=== PATIENT | male | born 1985 | race African-American/Black ===

== ENCOUNTER 2017-12-18 12:49 | Emergency (ER) | payer OTHER ==
[2017-12-18 13:19] LABS: BILIRUBIN,URINE NEGATIVE (NEG); CLARITY,URINE CLOUDY; COLOR,URINE YELLOW; GLUCOSE,URINE NEGATIVE (NEG); NITRITE,URINE NEGATIVE (NEG); PH,URINE 6.5; PROTEIN,URINE NEGATIVE (NEG-TRACE); UROBILINOGEN,URINE 0.2 mg/dL (0.2 mg/dL)
[2017-12-18 13:37] LABS: BACTERIA,URINE 0 /HPF (0-FEW); RBC,URINE 0 /HPF (0-2); SQUAMOUS EPITHELIAL CELL,UR FEW /LPF; TRICHOMONAS,URINE PRESENT; WBC,URINE >40 /HPF (0-4)
[2017-12-18] MEDS: cefTRIAXone IM 1 GM VIAL IM (14:07)
== END 2017-12-18 14:10 | disposition home or self-care (01) ==
LOC: ER 12:49
DX: N30.00 Acute cystitis without hematuria (principal); Z88.6 Allergy status to analgesic agent
CPT/HCPCS: 81001; 87086; 96372; 99284-25; J0696

== ENCOUNTER 2019-03-02 11:37 | Emergency (ER) | payer BC, OTHER ==
[~2019-03-02] VITALS: Ht 193 cm; Wt 86.2 kg
[~2019-03-02 11:37] MED LIST: CIPR500T94 PO; OXYC1TAB7 PO; SUMA25TA3 PO
[2019-03-02 11:49] VITALS: BP 132/84
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
[2019-03-02] MEDS ORDERED: LIDOCAINE 1%/EPI 1:100,000 20 ML VIAL. INJ ONE (12:30)
[2019-03-02] MEDS ORDERED: DIPHTH,PERTUSS(ACELL),TET TOX 0.5 ML DISP.SYRIN. VAX IM ONE (12:30)
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
[2019-03-02] MEDS ORDERED: ACETAMINOPHEN 325 MG TABLET. PO ONE (13:45)
== END 2019-03-02 13:34 | disposition home or self-care (01) ==
LOC: ER 11:37
DX: S01.01XA Laceration without foreign body of scalp, initial encounter (principal); S60.922A Unspecified superficial injury of left hand, initial encounter; S60.921A Unspecified superficial injury of right hand, initial encounter; S50.911A Unspecified superficial injury of right forearm, initial encounter; M25.531 Pain in right wrist; M25.562 Pain in left knee; F10.20 Alcohol dependence, uncomplicated; Y90.9 Presence of alcohol in blood, level not specified; Z88.6 Allergy status to analgesic agent; Z88.8 Allergy status to other drugs, medicaments and biological substances; Y04.0XXA Assault by unarmed brawl or fight, initial encounter; Y93.89 Activity, other specified; Y92.89 Other specified places as the place of occurrence of the external cause; Y99.8 Other external cause status
CPT/HCPCS: 12001; 73110; 73562; 90471; 90715; 99283; J3490